=== PATIENT | female | born 2000 | race Caucasian/White ===

== ENCOUNTER 2024-07-23 23:04 | Emergency (ER) | payer MEDICAID ==
[~2024-07-23] VITALS: Ht 157.5 cm; Wt 87.0 kg
[2024-07-23 23:08] VITALS: O2SAT 96
[2024-07-24] MEDS: SODIUM CHLORIDE 0.9% 1,000 ML IV ONE (00:28)
[2024-07-24] MEDS: FAMOTIDINE 20MG/2ML VIAL IV ONE (00:28)
[2024-07-24] MEDS: ONDANSETRON HCL 4MG/2ML INJ IV ONE (00:28)
[2024-07-24 00:50] LABS: CARBON DIOXIDE 27 mEq/L (21-32); CHLORIDE 103 mEq/L (98-107); POTASSIUM 3.7 mEq/L (3.5-5.1); SODIUM 137 mEq/L (136-145)
[2024-07-24 00:51] LABS: BASOPHILS % 0.2 % (0.0-2.0); CALCIUM 9.7 mg/dL (8.7-10.4); EOSINOPHILS % 0.1 % (0.0-5.0); HEMATOCRIT. 43.3 % (36.0-48.0); HEMOGLOBIN. 14.3 g/dL (12.0-16.0); LYMPHOCYTES % 11.5 % (20.0-50.0); MEAN CORPUSCULAR HEMOGLOBIN 27.4 pg (28.0-32.0); MEAN CORPUSCULAR HGB CONC 33.1 g/dL (31.0-37.0); MEAN CORPUSCULAR VOLUME 82.8 fL (81.0-99.0); MONOCYTES % 2.7 % (2.0-8.0); NEUTROPHILS % 85.5 % (40.0-76.0); PLATELET 346 x1000/uL (130-400); RED BLOOD CELL COUNT 5.23 mill/uL (4.2-5.4); WHITE BLOOD COUNT 18.9 x1000/uL (4.5-11.0)
[2024-07-24 00:55] LABS: CREATININE 0.7 mg/dL (0.6-1.0)
[2024-07-24 00:56] LABS: ETHANOL BLOOD < 10 mg/dL (<10); GLUCOSE 114 mg/dL (70-105); UREA NITROGEN BLOOD 11 mg/dL (9-23)
[2024-07-24 00:57] LABS: ALANINE AMINOTRANSFERASE 32 IU/L (10-49); ASPARTATE AMINOTRANSFERASE 24 IU/L (<34)
[2024-07-24 00:58] LABS: ALBUMIN 4.9 g/dL (3.2-4.8); BILIRUBIN DIRECT 0.1 mg/dL (<=3.0); BILIRUBIN TOTAL 0.5 mg/dL (0.1-1.0); PROTEIN TOTAL 8.3 g/dL (6.0-8.3)
[2024-07-24 01:09] LABS: HCG SCREEN NEGATIVE
[2024-07-24] MEDS: MAGNESIUM/ALUMINUM HYDROXIDE/SIMETHICONE 30ML UDC PO ONE (01:35)
[2024-07-24] MEDS: SODIUM CHLORIDE 0.9% (SEPSIS BOLUS) IV ONE (01:36)
[2024-07-24] MEDS: CEFTRIAXONE 1GM/50ML 50 ML IV ONE (02:11)
[2024-07-24] MEDS: AZITHROMYCIN 500MG/250ML 250 ML IV ONE (02:12)
[2024-07-24] MEDS ORDERED: ONDA-239 PO (03:13)
[2024-07-24] MEDS ORDERED: FAMO-135 MT (03:13)
[2024-07-24 03:58] VITALS: BP 105/62; PULSE 95; RESP 22; TEMP 37.1; O2SAT 96
== END 2024-07-24 04:06 | disposition home or self-care (01) ==
LOC: ER 23:04
DX: K80.60 Calculus of gallbladder and bile duct with cholecystitis, unspecified, without obstruction (principal); R10.13 Epigastric pain; I10 Essential (primary) hypertension; Z90.710 Acquired absence of both cervix and uterus; Z79.899 Other long term (current) drug therapy
CPT/HCPCS: 80076; 80048; 80320; 84703; 83690; 85025; 36415; 99291; 83605; 87040; 87086; 71045; 74176; 96368; 96361; 96365; 96375; Z7610; J0456; J0696; J1308; J2405; J7030; A4606; G0480